=== PATIENT | male | born 1945 | race Caucasian/White ===

== ENCOUNTER 2017-04-29 10:00 | Outpatient (CLI) ==
[2014-04-10 03:24] VITALS: BMI 38.0
== END 2017-04-29 10:01 | disposition short-term general hospital (02) ==
LOC: AMBL 10:00
PROVIDERS: ATTEND Emergency Medicine
DX: M54.9 Dorsalgia, unspecified (principal); R53.1 Weakness; M48.00 Spinal stenosis, site unspecified

== ENCOUNTER 2023-07-25 11:49 | Inpatient (IN) ==
[2023-07-25 12:26] LABS: RSV MOLECULAR NEGATIVE BY NAAT (NEGATIVE)
[2023-07-25 12:27] LABS: SARS COV-2 RNA RAPID NAAT POSITIVE (NEGATIVE)
[2023-07-25 12:30] LABS: MOLECULAR FLU A NEGATIVE BY NAAT (NEGATIVE); MOLECULAR FLU B NEGATIVE BY NAAT (NEGATIVE)
[2023-07-25 13:50] LABS: BASOPHILS % (AUTO) 0.1 % (0.0-3.0); EOSINOPHILS # (AUTO) 0.1 K/ul (0.0-0.7); EOSINOPHILS % (AUTO) 1.1 % (0.0-7.0); HEMATOCRIT 46.1 % (42.0-52.0); HEMOGLOBIN 15.5 g/dl (14.0-18.0); IMMATURE GRANULOCYTE % (AUTO) 0.5 % (0.0-5.0); LYMPHOCYTES # (AUTO) 0.7 K/uL (0.60-3.4); LYMPHOCYTES % (AUTO) 7.7 (10.0-50.0); MEAN CORPUSCULAR HEMOGLOBIN 30.5 pg (27.0-31.0); MEAN CORPUSCULAR HGB CONC 33.6 (31.8-35.4); MEAN CORPUSCULAR VOLUME 90.7 fl (80.0-94.0); MONOCYTES # (AUTO) 0.9 K/uL (0.4-2.0); NEUTROPHILS # (AUTO) 6.8 K/ul (2.0-6.9); NEUTROPHILS % (AUTO) 80.6 % (42.2-75.2); PLATELET COUNT 159 10^3/uL (140-440); RDW COEFFICIENT OF VARIATION 13.2 % (11.6-14.8); RED BLOOD COUNT 5.08 10^6/ul (4.70-6.10); WHITE BLOOD COUNT 8.48 K/ul (4.2-10.2)
[2023-07-25 14:03] LABS: ALKALINE PHOSPHATASE 56.9 U/L (56-119); ASPARTATE AMINO TRANSFERASE 26.1 U/L (17-59); BLOOD UREA NITROGEN 12.3 mg/dL (9-20); CALCIUM 9.48 mg/dL (8.4-10.2); CARBON DIOXIDE 28.9 mmol/L (22-30.0); CHLORIDE 100.8 mmol/L (98-107); CREATININE 1.15 mg/dL (0.60-1.10); POTASSIUM 4.06 mmol/L (3.5-5.1); SODIUM 134.9 mmol/L (134.5-145); TOTAL PROTEIN 7.74 g/dL (6.3-8.2)
--- NOTE | 2023-07-25 14:03 | ED.PDOC ---
General ED Provider: Dr. KEON STRICKLAND DO Chief Complaint: Respiratory Complaint Stated Complaint: Patient is a 77 yo M here for weakness, cough and discomfort for 3 days Patient arrives afebrile and mildly hypoxic 92% on room air, he does not use home oxygen Patient pleasant to speak with He has dementia and daughters who are POA are at bedside He has not have bacterial pneumonia or covid 19 vaccines He is a non smoker Patient speaking in full senteces on room air spo2 92-94% No falls or injuries No chest pain, no rashes, no dysuria patient amenable to work up Family requesting labs imaging and testing Covid + shortly after arrival Patient ambulated well to bed 1 Time Seen by Provider: 07/25/23 12:20 Information Source: Patient and Family Primary Care Provider: MARIVEL BOOGIE Nursing and Triage Documentation Reviewed and Agree: Yes What is Opioid Naive?: *Opioid Naive implies the patient is not already taking opioids or not chronically receiving opioids on a daily basis. *PRN dosing is not "usually" associated with tolerance. *Patients are at higher risk of over-sedation and aspiration. What is Opioid Tolerant?: *Opioid Tolerance implies less than the expected response to an opioid. *Acquired tolerance is defined by the patient taking 60mg of oral morphine daily (or equianalgesic dose of another opioid) for 1 week or more. *Often associated with chronic pain. *May take more than usual dose to achieve desired pain control. Review of Systems Review Of Systems Constitutional: Reports Chills, Fever and Weakness Eyes: Denies Blindness, Vision change or Drainage Ears, Nose, Mouth, Throat: Denies Ear pain, Ear discharge or Nose pain Respiratory: Reports Cough; Denies Shortness of Breath or Wheezing Cardiac: Denies Chest pain, Palpitations or Syncope GI: Denies Constipated or Diarrhea : Denies Burning, Dysuria or Discharge Musculoskeletal: Reports Muscle pain; Denies Back pain or Neck pain Skin: Denies Bruising or Rash Neurological: Denies Anxiety or Depressed Endocrine: Reports No symptoms Hematologic/Lymphatic: Reports No symptoms All Other Systems: Reviewed and Negative Physical Exam Physical Exam Appearance: Reports Well-appearing, Well-nourished and Obese Ill-appearing: Not Applicable Pain Distress: Not Applicable Eyes: Reports NITISH, EOMI and Conjunctiva clear ENT: Reports Ears normal, Nose normal, Oropharynx normal and Other (Uvula midline) Neck: Supple Respiratory: Reports Airway patent, Breath sounds clear and Rhonchi; Denies Wheezes or Retractions Cardiovascular: Reports Pulses normal and Tachycardia (rate 101) GI/: Reports Soft, Nontender and Other (cenral abdominal obesity, no guarding) Musculoskeletal: Reports Normal strength, ROM intact and No edema Skin: Reports Warm and Dry Neurological: Reports Sensation intact and Motor intact Psychiatric: Reports Affect appropriate and Mood appropriate Interpretation EKG Interpretation EKG Interpretation By: ED Physician Time of EKG #1: 14:16 Interpretation: NSR rate 94 no stemi, qrs qt wnl Course Course 07/25/23 13:44 07/25/23 13:44 Orders, Labs, Meds: Lab Review 07/25/23 07/25/23 07/25/23 12:05 13:44 14:02 WBC 8.48 RBC 5.08 Hgb 15.5 Hct 46.1 MCV 90.7 MCH 30.5 MCHC 33.6 RDW Coeff of Cas 13.2 Plt Count 159 Immature Gran % (Auto) 0.5 Neut % (Auto) 80.6 H Lymph % (Auto) 7.7 L [place] % (Auto) 10.0 Eos % (Auto) 1.1 Baso % (Auto) 0.1 Neut # (Auto) 6.8 Lymph # (Auto) 0.7 [place] # (Auto) 0.9 Eos # (Auto) 0.1 Baso # (Auto) 0.0 Immature Gran # (Auto) 0.0 Puncture Site Rrad Base Excess 2.5 O2 Saturation 92.6 L ABG pH 7.47 H ABG pCO2 36.0 ABG pO2 61.0 L ABG HCO3 26.2 ABG Total CO2 27.3 H Goran Test + Hemoglobin 1.1 Oxyhemoglobin 91.9 L Carboxyhemoglobin 2.6 H Total Hemoglobin 15.4 O2 Delivery Device Ra FiO2 % 21.0 Sodium 134.9 Potassium 4.06 Chloride 100.8 Carbon Dioxide 28.9 Anion Gap 9.26 BUN 12.3 Creatinine 1.15 H Estimated GFR (MDRD) 62.00 BUN/Creatinine Ratio 10.69 Glucose 118.0 H Lactic Acid 1.05 Calcium 9.48 Total Bilirubin 1.30 AST 26.1 ALT 26.0 Alkaline Phosphatase 56.9 Troponin I < 0.012 Total Protein 7.74 Albumin 4.30 Globulin 3.44 Albumin/Globulin Ratio 1.25 Influ A Molecular Assay Negative by naat Influ B Molecular Assay Negative by naat RSV Antigen Negative by naat SARS CoV-2 RNA Rapid CLAU Positive H Orders Category Date Time Status OBSERVATION [PLACE PATIENT OBSERVATION] .TO MEDSURG ADMISSION 07/25/23 15:44 Active (MONITORED BED) ABG DRAW REQUEST Stat CARDIO 07/25/23 12:47 Completed EKG-(ED ONLY) Stat CARDIO 07/25/23 12:47 Completed INCENTIVE SPIROMETRY Routine CARDIO 07/25/23 15:42 Ordered NEBULIZER TREATMENT Routine CARDIO 07/25/23 15:45 Ordered OXYGEN Routine CARDIO 07/25/23 15:43 Ordered ACTIVITY .Early Mobilization for VTE Prevention CARE 07/25/23 15:41 Active CONTINUOUS PULSE OX (NURSING) PULSEOX CARE 07/25/23 15:42 Active INTAKE & OUTPUT Q8HR CARE 07/25/23 15:41 Active NPO REMINDER: IMAGING ONCE CARE 07/25/23 12:47 Active TELEMETRY MONITORING TELE CARE 07/25/23 15:42 Active TELEMETRY MONITORING TELE CARE 07/25/23 15:44 Active VITAL SIGNS Q4HR CARE 07/25/23 15:43 Active REGULAR DIET DIETARY 07/25/23 Dinner Ordered ED APPLY O2 .ONCE EMERGENCY 07/25/23 12:47 Active ED PARKER APPLIED .ONCE EMERGENCY 07/25/23 12:47 Active ABG COOX Stat LAB 07/25/23 14:02 Completed CBC W/ AUTO DIFF DAILY@0600 LAB 07/26/23 06:00 Ordered CBC W/ AUTO DIFF DAILY@0600 LAB 07/27/23 06:00 Ordered CBC W/ AUTO DIFF Stat LAB 07/25/23 13:44 Completed COMPREHENSIVE METABOLIC PANEL DAILY@0600 LAB 07/26/23 06:00 Ordered COMPREHENSIVE METABOLIC PANEL DAILY@0600 LAB 07/27/23 06:00 Ordered COMPREHENSIVE METABOLIC PANEL Stat LAB 07/25/23 13:44 Completed LACTIC ACID Stat LAB 07/25/23 13:44 Completed MOLECULAR FLU A & B [FLU A/B MOLECULAR] Stat LAB 07/25/23 12:05 Completed MOLECULAR GROUP A STREP Stat LAB 07/25/23 12:05 Completed RSV Stat LAB 07/25/23 12:05 Completed SARS COV-2 RNA RAPID CLAU Stat LAB 07/25/23 12:05 Completed TROPONIN I Stat LAB 07/25/23 13:44 Completed Albuterol Sulfate 0.083% Neb [Albuterol 0.083% Neb] Meds 07/25/23 15:41 Active 2.5 mg NEB RTQ4H PRN Dexamethasone Sod Phosphate [Decadron] Meds 07/26/23 09:00 Active 6 mg IV DAILY Ipratropium/Albuterol Neb [Duoneb] Meds 07/25/23 18:00 Active 3 ml NEB RTQ6H Sodium Chloride 0.9% [Sodium Chloride] 1,000 ml Meds 07/25/23 16:00 Ordered IV 100 mls/hr CT CHEST PE PROTOCOL Stat RADS 07/25/23 12:47 Completed Medications Generic Name Dose Route Start Last Admin Trade Name Freq PRN Reason Stop Dose Admin Albuterol Sulfate 2.5 mg 07/25/23 15:41 Albuterol Sulfate 0.083% Vial.Neb NEB RTQ4H PRN Wheezing Albuterol/Ipratropium 3 ml 07/25/23 18:00 Ipratropium/Albuterol Vial.Neb NEB RTQ6H JEROD Dexamethasone Sodium Phosphate 6 mg 07/26/23 09:00 Dexamethasone Sod Phos 10 Mg/Ml Inj IV DAILY JEROD Sodium Chloride 1,000 mls @ 100 mls/hr 07/25/23 16:00 Sodium Chloride IV .Q10H JEROD Vital Signs: Temp Pulse Resp BP Pulse Ox 07/25/23 12:09 100.1 F 102 H 20 132/73 93 L Hospitalist agrees with obs MDM: patient is a 77 yo M here for cough weakness and feer Patient afebrile and mildly hypoxic 92% Hx form POA and chart review by me Exam concerning for viral syndrome 3+ labs and 2 images reviewed by me I consulted hospitalist who agrees with admission for hypoxia and remdesivir treatment WDX: Covid 19, hypoxia acute moderate complexity DDX: I considered sepsis, abscess, shock but these were not found SDOH: patient has PCP and family support All questions answered Patient and family amenable to observation stay Patient and family and I discussed risks benefits alternatives and plan of care Discharge Plan Discharge Patient Disposition: PLACED OBSERVATION Discharge Problem: COVID-19, Hypoxia Did you review [place] [employer] for ALL controlled substances?: Not Applicable ED Provider: KEON STRICKLAND Condition: Fair Physician Progress Note: []
[2023-07-25 14:16] LABS: TROPONIN I < 0.012 ng/ml (0.0000-0.120)
[2023-07-25 14:46] LABS: ABG O2 HGB 91.9 % (95-100); ABG PH 7.47 (7.35-7.45); BEecf 2.5 (-2.0-3.0); COHb 2.6 (0.5-1.5); HCO3 26.2 (21-28); MetHb 1.1 (0-1.5); TCO2 27.3 (19-24); sO2 92.6 % (94-98); tHb 15.4 g/dl (11.7-17.4)
--- NOTE | 2023-07-25 15:28 | CT ---
EXAM: CTA CHEST WITH CONTRAST HISTORY: COVID-19 and hypoxia COMPARISON: None TECHNIQUE: Multi-slice transaxial helical images are acquired through the chest according to an [facility] ogram protocol. 3-D volume images are provided. All CT scans are performed using dose optimization techniques as appropriate to the performed exam and includes at least one of the following: Automate d exposure control, adjustment of the mA and/or kV according to size, and the use of iterative recons truction technique. CONTRAST: Intravenous FINDINGS: The pulmonary ateries are free of intraluminal filling defects. The ascending aorta is ec tatic to 34.1 mm. The heart size is normal. Aortic valve calcifications suggest aortic valve stenos is. Left anterior descending coronary calcifications are noted. No pericardial or pleural effusions . No suspicious lymphadenopathy. The lungs are atelectatic. No acute infiltrates. The dependent l ungs are atelectatic. No suspicious pulmonary nodules or masses. The ventilation is diffusely low relative to the spleen. A simple cyst is noted near the superior po le of the right kidney. An additional small simple cyst is suggested at the superior to interpolar r egion left kidney. There is additional tiny hypodensity at the superior pole of the left kidney that is too small to characterize. The solid organs are otherwise grossly normal in their visualized por tions of the upper abdomen. The gallbladder is surgically absent without biliary dilatation. No suspicious osteolytic or osteoblastic bone lesions. No acute bony abnormalities are evident. IMPRESSION: - No acute cardiopulmonary disease. - No pulmonary emboli. - Ectasia of the ascending aorta 34.1 mm and tending suggestive of aortic valve stenosis. - Left anterior descending coronary artery disease. - Possible diffuse hepatic steatosis. - Simple acquired renal cysts. All CT scans are performed using dose optimization techniques as appropriate to the performed exam an d include at least one of the following: Automated exposure control, adjustment of the mA and/or kV according t o size, and the use of iterative reconstruction technique.
[2023-07-25] MEDS ORDERED: ALBUTEROL 0.083% NEB NEB PRN (15:41)
--- NOTE | 2023-07-25 16:44 | PCM ---
Date of Service Date Seen by Provider: 07/25/23 Time Seen by Provider: 16:30 Admit Day/Time Admission Date: 07/25/23 Reason for Admission Chief Complaint: HYPOXIA Hospital Provider Hospital Provider: HAO CAMPBELL, [facility] Primary Care Physician Primary Care Physician: MARIVEL BOOGIE History of Present Illness History of Present Illness: 77 yo male presented to the ER with headache, chills, and weakness. Patient has pmh of undiagnosed dementia with short term memory loss. Daughter present to provide HPI. Reports symptoms started Wednesday. Has not been eating or drinking well since then. Fever and headache started Wednesday and continued. Denies sob, n/v/d. O2 sat in ER below 94%. Was placed on 2L per ER doctor. On RA on my exam. ABG showed PO2 61%. Admitted to med/surg observation. Case Discussed With Case Discussed With: Patient's case was discussed with the ER Physicians, Dr. Yang. Allergies Allergies Allergy/AdvReac Type Severity Reaction Status Date / Time meperidine HCl [From Demerol] AdvReac Flushing Verified 07/25/23 11:56 Current Medications Home Medications levothyroxine 75 mcg tablet (Synthroid) 75 mcg PO DAILY 04/10/14 [History Confirmed 07/25/23 Last Taken Unknown] simvastatin 20 mg tablet 20 mg PO DAILY 04/10/14 [History Confirmed 07/25/23 Last Taken Unknown] donepezil 10 mg tablet 10 mg PO BEDTIME 11/14/20 [History Confirmed 07/25/23 Last Taken Unknown] lamotrigine 25 mg tablet 50 mg PO DAILY 11/14/20 [History Confirmed 07/25/23 Last Taken Unknown] lisinopril 10 mg-hydrochlorothiazide 12.5 mg tablet 1 tab PO DAILY 11/14/20 [History Confirmed 07/25/23 Last Taken Unknown] meclizine 25 mg tablet 25 mg PO TID PRN Dizziness Or Vertigo 11/14/20 [History Confirmed 07/25/23 Last Taken Unknown] rivaroxaban 20 mg tablet (Xarelto) 20 mg PO DAILY 11/14/20 [History Confirmed 07/25/23 Last Taken Unknown] sertraline 100 mg tablet 100 mg PO DAILY 11/14/20 [History Confirmed 07/25/23 Last Taken Unknown] clotrimazole-betamethasone 1 %-0.05 % topical cream 1 applic topical BID 07/25/23 [History Confirmed 07/25/23 Last Taken Unknown] trazodone 50 mg tablet 50 mg PO BEDTIME 07/25/23 [History Confirmed 07/25/23 Last Taken Unknown] Home Acetaminophen (Acetaminophen 325 Mg Tablet) 650 mg PO Q4H PRN PRN Reason: FEVER/PAIN Albuterol Sulfate (Albuterol Sulfate 0.083% Vial.Neb) 2.5 mg NEB RTQ4H PRN PRN Reason: Wheezing Albuterol/Ipratropium (Ipratropium/Albuterol Vial.Neb) 3 ml NEB RTQ6H JEROD Dexamethasone Sodium Phosphate (Dexamethasone Sod Phos 10 Mg/Ml Inj) 6 mg IV DAILY JEROD Sodium Chloride (Sodium Chloride) 1,000 mls @ 100 mls/hr IV .Q10H JEROD Remdesivir 200 mg/ Sodium (Chloride) 250 mls @ 250 mls/hr IV ONCE ONE Stop: 07/25/23 17:41 Remdesivir 100 mg/ Sodium (Chloride) 100 mls @ 200 mls/hr IV DAILY JEROD Stop: 07/29/23 09:29 Ibuprofen (Ibuprofen 600 Mg Tablet) 600 mg PO Q6H PRN PRN Reason: FEVER/PAIN Opioid Naive vs. Tolerant Does Patient Take Opioids?: No Is Patient Opioid Naive?: Yes What is Opioid Naive?: *Opioid Naive implies the patient is not already taking opioids or not chronically receiving opioids on a daily basis. *PRN dosing is not "usually" associated with tolerance. *Patients are at higher risk of over-sedation and aspiration. Is Patient Opioid Tolerant?: No What is Opioid Tolerant?: *Opioid Tolerance implies less than the expected response to an opioid. *Acquired tolerance is defined by the patient taking 60mg of oral morphine daily (or equianalgesic dose of another opioid) for 1 week or more. *Often associated with chronic pain. *May take more than usual dose to achieve desired pain control. Review of Systems Constitutional: Reports Fever, Chills, Weakness and Loss of appetite Head: Reports Normocephalic Eyes: Reports No symptoms Ears: Reports No symptoms Nose: Reports No symptoms Mouth: Reports No symptoms Throat: Reports Sore Throat Cardiovascular: Reports No symptoms Respiratory: Reports Cough Gastrointestinal: Reports No symptoms Genitourinary: Reports No Symptoms Musculoskeletal: Reports No symptoms Endocrine: Reports No symptoms Hematology: Reports No symptoms Immunology: Reports No symptoms Neurological: Reports No symptoms Psychiatric: Reports No symptoms Physical examination Most Recent Vital Signs: Most Recent Vital Signs Temperature 100.1 F 07/25/23 12:09 Temperature Source Infrared 07/25/23 12:09 Pulse Rate 102 H 07/25/23 12:09 Respiratory Rate 20 07/25/23 12:09 Blood Pressure 132/73 07/25/23 12:09 O2 Sat by Pulse Oximetry 93 L 07/25/23 12:09 Height 5 ft 7 in 07/25/23 12:09 Weight 227 lb 3.2 oz 07/25/23 12:09 Appearance: Positive No Apparent Distress, Alert and Oriented x3 and Ill- Appearing Skin: Positive Warm and Good Turgor HEENT: Positive Normocephalic and PERRLA Neck: Positive Supple and Midline Trachea Chest/Lungs: Positive Symmetrical With Equal Breath Sounds, Clear to Auscultation Bilaterally and Good Air Movement all 4 Lung [place] Heart: Positive RRR and Pulses Normal GI/: Positive Soft, Nontender, Bowel Sounds Normal and No Distention Musculoskeletal: Positive Not Examined Extremities: Positive Intact Peripheral Pulses, Stable Joints Without Laxity and Good ROM in All Joints Neurological: Positive Sensation Intact, Motor intact, Alert, Disorinted and Other (generalized weakness) Labs This Visit Labs This Visit: Labs This Visit 07/25/23 07/25/23 07/25/23 12:05 13:44 14:02 WBC 8.48 RBC 5.08 Hgb 15.5 Hct 46.1 MCV 90.7 MCH 30.5 MCHC 33.6 RDW Coeff of Cas 13.2 Plt Count 159 Immature Gran % (Auto) 0.5 Neut % (Auto) 80.6 H Lymph % (Auto) 7.7 L [place] % (Auto) 10.0 Eos % (Auto) 1.1 Baso % (Auto) 0.1 Neut # (Auto) 6.8 Lymph # (Auto) 0.7 [place] # (Auto) 0.9 Eos # (Auto) 0.1 Baso # (Auto) 0.0 Immature Gran # (Auto) 0.0 Puncture Site Rrad Base Excess 2.5 O2 Saturation 92.6 L ABG pH 7.47 H ABG pCO2 36.0 ABG pO2 61.0 L ABG HCO3 26.2 ABG Total CO2 27.3 H Goran Test + Hemoglobin 1.1 Oxyhemoglobin 91.9 L Carboxyhemoglobin 2.6 H Total Hemoglobin 15.4 O2 Delivery Device Ra FiO2 % 21.0 Sodium 134.9 Potassium 4.06 Chloride 100.8 Carbon Dioxide 28.9 Anion Gap 9.26 BUN 12.3 Creatinine 1.15 H Estimated GFR (MDRD) 62.00 BUN/Creatinine Ratio 10.69 Glucose 118.0 H Lactic Acid 1.05 Calcium 9.48 Total Bilirubin 1.30 AST 26.1 ALT 26.0 Alkaline Phosphatase 56.9 Troponin I < 0.012 Total Protein 7.74 Albumin 4.30 Globulin 3.44 Albumin/Globulin Ratio 1.25 Influ A Molecular Assay Negative by naat Influ B Molecular Assay Negative by naat RSV Antigen Negative by naat SARS CoV-2 RNA Rapid CLAU Positive H Microbiology This Visit 07/25/23 12:05 Throat Group A Strep Molecular Assay - Final Imaging Imaging: EXAM: CTA CHEST WITH CONTRAST FINDINGS: The pulmonary ateries are free of intraluminal filling defects. The ascending aorta is ectatic to 34.1 mm. The heart size is normal. Aortic valve calcifications suggest aortic valve stenosis. Left anterior descending coronary calcifications are noted. No pericardial or pleural effusions. No suspicious lymphadenopathy. The lungs are atelectatic. No acute infiltrates. The dependent lungs are atelectatic. No suspicious pulmonary nodules or masses. The ventilation is diffusely low relative to the spleen. A simple cyst is noted near the superior pole of the right kidney. An additional small simple cyst is suggested at the superior to interpolar region left kidney. There is additional tiny hypodensity at the superior pole of the left kidney that is too small to characterize. The solid organs are otherwise grossly normal in their visualized portions of the upper abdomen. The gallbladder is surgically absent without biliary dilatation. No suspicious osteolytic or osteoblastic bone lesions. No acute bony abnormalities are evident. IMPRESSION: - No acute cardiopulmonary disease. - No pulmonary emboli. - Ectasia of the ascending aorta 34.1 mm and tending suggestive of aortic valve stenosis. - Left anterior descending coronary artery disease. - Possible diffuse hepatic steatosis. - Simple acquired renal cysts. Review Statement Review Statement: I have independently reviewed and interpreted the labs/EKGs/imaging that were ordered by the ER provider. I have reviewed all outside records that are available currently in our EMR including imaging/notes/labs from previous visits. Plan Plan: 1. Acute Hypoxic Respiratory Failure in setting of Covid-19 - wean oxygen as tolerated, steroids nebs 2. Covid-19 - decadron 6 mg IVP, remdesivir per protocol, nebs 3. Dehydration - mild, NS@100mL/hr, avoid nephrotoxins/hypotension 4. Hypertension - chronic, on lisinopril-hctz, will order lisinopril without HCTZ due to dehydration and lack of drinking 5. Hypothyroidism - chronic, continue home medications DVT Prophylaxis: Xarelto Time Spent: Greater than 80 minutes spent with patient, 50% of the time spent with this patient was devoted to counseling and coordination of care. [facility]annin minutes spent discussing advance care planning. Disposition: Admit to: Med/Surg Observation Discussed Plan of Care with Dr. Halle Blair. Medications Medication Orders: Medications Ordered Category Date Time Status Acetaminophen [Tylenol] Meds 07/25/23 16:42 Ordered 650 mg PO Q4H PRN Albuterol Sulfate 0.083% Neb [Albuterol 0.083% Neb] Meds 07/25/23 15:41 Active 2.5 mg NEB RTQ4H PRN Dexamethasone Sod Phosphate [Decadron] Meds 07/26/23 09:00 Active 6 mg IV DAILY Ibuprofen [Motrin] Meds 07/25/23 16:42 Ordered 600 mg PO Q6H PRN Ipratropium/Albuterol Neb [Duoneb] Meds 07/25/23 18:00 Active 3 ml NEB RTQ6H Remdesivir [Veklury] 100 mg Meds 07/26/23 09:00 Ordered 0.9 % Sodium Chloride [Sodium Chloride 100Ml] 100 ml IV DAILY Remdesivir [Veklury] 200 mg Meds 07/25/23 16:42 Ordered 0.9 % Sodium Chloride [Sodium Chloride] 250 ml IV ONCE Sodium Chloride 0.9% [Sodium Chloride] 1,000 ml Meds 07/25/23 16:00 Active IV 100 mls/hr
[2023-07-25] MEDS: TYLENOL PO PRN (17:02)
[2023-07-25] MEDS: SODIUM CHLORIDE 1,000 ML IV SCH (17:02)
[2023-07-25 17:27] VITALS: BMI 34.6
[2023-07-25] MEDS: DUONEB NEB SCH (17:50)
[2023-07-25] MEDS: VEKLURY 200 MG in SODIUM CHLORIDE 250 ML IV ONE (18:28)
[2023-07-25] MEDS: LOTRISONE 45 GM TP SCH (21:10)
[2023-07-25] MEDS: ARICEPT PO SCH (21:10)
[2023-07-25] MEDS: DESYREL PO SCH (21:11)
[2023-07-25] MEDS: MOTRIN PO PRN (21:25)
[2023-07-26 05:35] LABS: BASOPHILS % (AUTO) 0.5 % (0.0-3.0); EOSINOPHILS # (AUTO) 0.1 K/ul (0.0-0.7); EOSINOPHILS % (AUTO) 0.8 % (0.0-7.0); HEMOGLOBIN 13.4 g/dl (14.0-18.0); IMMATURE GRANULOCYTE % (AUTO) 0.3 % (0.0-5.0); LYMPHOCYTES # (AUTO) 1.3 K/uL (0.60-3.4); LYMPHOCYTES % (AUTO) 20.8 (10.0-50.0); MEAN CORPUSCULAR HEMOGLOBIN 30.2 pg (27.0-31.0); MEAN CORPUSCULAR HGB CONC 32.7 (31.8-35.4); MEAN CORPUSCULAR VOLUME 92.6 fl (80.0-94.0); MONOCYTES # (AUTO) 1.1 K/uL (0.4-2.0); MONOCYTES % (AUTO) 16.7 (0-10); NEUTROPHILS # (AUTO) 3.9 K/ul (2.0-6.9); NEUTROPHILS % (AUTO) 60.9 % (42.2-75.2); PLATELET COUNT 138 10^3/uL (140-440); RDW COEFFICIENT OF VARIATION 13.4 % (11.6-14.8); RED BLOOD COUNT 4.43 10^6/ul (4.70-6.10); WHITE BLOOD COUNT 6.35 K/ul (4.2-10.2)
[2023-07-26 05:47] LABS: ALANINE AMINOTRANSFERASE 23.1 U/L (0-50); ALBUMIN 3.62 g/dL (3.5-5.0); ASPARTATE AMINO TRANSFERASE 25.8 U/L (17-59); BILIRUBIN,TOTAL 1.02 mg/dL (0.2-1.3); BLOOD UREA NITROGEN 13.5 mg/dL (9-20); CALCIUM 8.44 mg/dL (8.4-10.2); CARBON DIOXIDE 26.3 mmol/L (22-30.0); CHLORIDE 104.8 mmol/L (98-107); CREATININE 1.04 mg/dL (0.60-1.10); GLUCOSE 103.2 mg/dL (74-106); POTASSIUM 3.91 mmol/L (3.5-5.1); SODIUM 134.4 mmol/L (134.5-145); TOTAL PROTEIN 6.71 g/dL (6.3-8.2)
[2023-07-26 08:14] LABS: PROTHROMBIN TIME 10.4 SEC (9.3-11.0)
[2023-07-26] MEDS: DECADRON IV SCH (08:17)
[2023-07-26] MEDS: SYNTHROID PO SCH (08:29)
[2023-07-26] MEDS: ZESTRIL PO SCH (08:29)
[2023-07-26] MEDS: XARELTO PO SCH (08:29)
[2023-07-26] MEDS: ZOCOR PO SCH (08:31)
--- NOTE | 2023-07-26 10:23 | PCM.PROG ---
Date/Time Seen Date Seen by Provider: 07/26/23 Time Seen by Provider: 08:40 Provider Provider: GABRIEL CHOUDHARY PA-C, [facility] Chief Complaint Chief Complaint: HYPOXIA Subjective Subjective: Patient states he's feeling better. Had breakfast today for first time in few days, had no appetite previously. Had a BM. On 2L. Daughters at bedside. Lives at home with . Objective Appearance: Positive No Apparent Distress and Alert and Oriented x3 Chest/Lungs: Positive Clear to Auscultation Bilaterally; Negative Rales, Rhonci or Wheezes Heart: Positive RRR GI/: Positive Soft, Nontender and Bowel Sounds Normal Neurological: Positive Cranial Nerves Intact, Alert and Other (+generalized weakness ) Vital Signs Vital Signs: Vital Signs: Last 24 Hours 07/25/23 12:09 07/25/23 16:46 07/25/23 16:53 Temperature 100.1 F 100.2 F Temperature Source Infrared Oral Pulse Rate 102 H 97 94 Pulse Rate [Apical] Respiratory Rate 20 20 18 Blood Pressure 132/73 Blood Pressure Mean Blood Pressure Left Arm 137/95 Blood Pressure Location Blood Pressure Position Supine O2 Sat by Pulse Oximetry 93 L 94 L 97 Oxygen Delivery Method Nasal Cannula Oxygen Flow Rate 2 Height 5 ft 7 in 5 ft 7 in Weight 227 lb 3.2 oz 221 lb Telemetry Type Telemetry Monitoring Telemetry Heart Rate Telemetry SPO2 EKG [place] Interval EKG QRS Interval Telemetry Strip [place] Pulse Oximetry Type Pulse Oximetry Monitoring 07/25/23 16:53 07/25/23 17:00 07/25/23 17:12 Temperature Temperature Source Pulse Rate Pulse Rate [Apical] 104 H Respiratory Rate 16 Blood Pressure Blood Pressure Mean Blood Pressure Left Arm Blood Pressure Location Blood Pressure Position O2 Sat by Pulse Oximetry Oxygen Delivery Method Nasal Cannula Nasal Cannula Oxygen Flow Rate 2 Height Weight Telemetry Type Remote Telemetry Telemetry Monitoring Started Telemetry Heart Rate 81 Telemetry SPO2 94 EKG IL Interval 0.18 EKG QRS Interval 0.08 Telemetry Strip Reading SR Pulse Oximetry Type Pulse Oximetry Monitoring 07/25/23 17:36 07/25/23 18:00 07/25/23 19:00 Temperature 100.3 F Temperature Source Temporal Artery Scan Pulse Rate Pulse Rate [Apical] Respiratory Rate Blood Pressure Blood Pressure Mean Blood Pressure Left Arm Blood Pressure Location Blood Pressure Position O2 Sat by Pulse Oximetry Oxygen Delivery Method Nasal Cannula Nasal Cannula Oxygen Flow Rate Height Weight Telemetry Type Remote Telemetry Telemetry Monitoring Continues Telemetry Heart Rate 108 H Telemetry SPO2 93 EKG IL Interval 0.14 EKG QRS Interval 0.06 Telemetry Strip [place] sinus tachycardia Pulse Oximetry Type Pulse Oximetry Monitoring 07/25/23 19:00 07/25/23 19:00 07/25/23 20:00 Temperature Temperature Source Pulse Rate Pulse Rate [Apical] Respiratory Rate Blood Pressure Blood Pressure Mean Blood Pressure Left Arm Blood Pressure Location Blood Pressure Position O2 Sat by Pulse Oximetry 96 Oxygen Delivery Method Nasal Cannula Nasal Cannula Nasal Cannula Oxygen Flow Rate 2 Height Weight Telemetry Type Telemetry Monitoring Telemetry Heart Rate Telemetry SPO2 EKG IL Interval EKG QRS Interval Telemetry Strip [place] Pulse Oximetry Type Bedside Monitor Pulse Oximetry Monitoring Continues 07/25/23 20:00 07/25/23 21:00 07/25/23 22:00 Temperature Temperature Source Pulse Rate Pulse Rate [Apical] 88 Respiratory Rate 19 Blood Pressure Blood Pressure Mean Blood Pressure Left Arm Blood Pressure Location Blood Pressure Position O2 Sat by Pulse Oximetry Oxygen Delivery Method Nasal Cannula Nasal Cannula Nasal Cannula Oxygen Flow Rate 2 Height Weight Telemetry Type Telemetry Monitoring Telemetry Heart Rate Telemetry SPO2 EKG IL Interval EKG QRS Interval Telemetry Strip [place] Pulse Oximetry Type Pulse Oximetry Monitoring 07/25/23 22:00 07/25/23 23:00 07/26/23 00:00 Temperature 98.3 F Temperature Source Oral Pulse Rate 91 Pulse Rate [Apical] Respiratory Rate 19 Blood Pressure 119/62 Blood Pressure Mean 81 Blood Pressure Left Arm Blood Pressure Location Left Arm Blood Pressure Position Supine O2 Sat by Pulse Oximetry 94 L Oxygen Delivery Method Room Air Nasal Cannula Nasal Cannula Oxygen Flow Rate Height Weight Telemetry Type Telemetry Monitoring Telemetry Heart Rate Telemetry SPO2 EKG IL Interval EKG QRS Interval Telemetry Strip [place] Pulse Oximetry Type Pulse Oximetry Monitoring 07/26/23 00:48 07/26/23 00:48 07/26/23 00:48 Temperature Temperature Source Pulse Rate Pulse Rate [Apical] Respiratory Rate Blood Pressure Blood Pressure Mean Blood Pressure Left Arm Blood Pressure Location Blood Pressure Position O2 Sat by Pulse Oximetry 94 L Oxygen Delivery Method Nasal Cannula Nasal Cannula Oxygen Flow Rate 2 Height Weight Telemetry Type Bedside Monitor Telemetry Monitoring Continues Telemetry Heart Rate 81 Telemetry SPO2 94 EKG [place] Interval 0.14 EKG QRS Interval 0.71 H Telemetry Strip Reading SINUS RHYTHM Pulse Oximetry Type Bedside Monitor Pulse Oximetry Monitoring Continues 07/26/23 02:00 07/26/23 02:00 07/26/23 03:00 Temperature 99 F Temperature Source Oral Pulse Rate 81 Pulse Rate [Apical] Respiratory Rate 19 Blood Pressure Blood Pressure Mean Blood Pressure Left Arm Blood Pressure Location Blood Pressure Position O2 Sat by Pulse Oximetry 95 Oxygen Delivery Method Nasal Cannula Nasal Cannula Nasal Cannula Oxygen Flow Rate 2 Height Weight Telemetry Type Telemetry Monitoring Telemetry Heart Rate Telemetry SPO2 EKG IL Interval EKG QRS Interval Telemetry Strip [place] Pulse Oximetry Type Pulse Oximetry Monitoring 07/26/23 04:00 07/26/23 05:00 07/26/23 05:52 Temperature Temperature Source Pulse Rate Pulse Rate [Apical] Respiratory Rate Blood Pressure Blood Pressure Mean Blood Pressure Left Arm Blood Pressure Location Blood Pressure Position O2 Sat by Pulse Oximetry 96 Oxygen Delivery Method Nasal Cannula Nasal Cannula Nasal Cannula Oxygen Flow Rate 2 Height Weight Telemetry Type Telemetry Monitoring Telemetry Heart Rate Telemetry SPO2 EKG IL Interval EKG QRS Interval Telemetry Strip [place] Pulse Oximetry Type Pulse Oximetry Monitoring 07/26/23 05:56 07/26/23 05:56 07/26/23 07:00 Temperature 99.0 F Temperature Source Oral Pulse Rate 74 Pulse Rate [Apical] Respiratory Rate 15 Blood Pressure 136/69 Blood Pressure Mean 91 Blood Pressure Left Arm Blood Pressure Location Left Arm Blood Pressure Position Supine O2 Sat by Pulse Oximetry 99 Oxygen Delivery Method Nasal Cannula Nasal Cannula Nasal Cannula Oxygen Flow Rate 2 Height Weight Telemetry Type Telemetry Monitoring Telemetry Heart Rate Telemetry SPO2 EKG IL Interval EKG QRS Interval Telemetry Strip [place] Pulse Oximetry Type Pulse Oximetry Monitoring 07/26/23 07:00 07/26/23 07:00 07/26/23 07:56 Temperature Temperature Source Pulse Rate Pulse Rate [Apical] Respiratory Rate Blood Pressure Blood Pressure Mean Blood Pressure Left Arm Blood Pressure Location Blood Pressure Position O2 Sat by Pulse Oximetry 96 Oxygen Delivery Method Nasal Cannula Nasal Cannula Oxygen Flow Rate 2 Height Weight Telemetry Type Bedside Monitor Telemetry Monitoring Continues Telemetry Heart Rate 66 Telemetry SPO2 96 EKG IL Interval 0.11 L EKG QRS Interval 0.06 Telemetry Strip [place] abnormal rhythm Pulse Oximetry Type Remote Telemetry Pulse Oximetry Monitoring Continues 07/26/23 08:00 07/26/23 09:00 Temperature Temperature Source Pulse Rate Pulse Rate [Apical] 84 Respiratory Rate 14 Blood Pressure Blood Pressure Mean Blood Pressure Left Arm Blood Pressure Location Blood Pressure Position O2 Sat by Pulse Oximetry Oxygen Delivery Method Nasal Cannula Nasal Cannula Oxygen Flow Rate 2 Height Weight Telemetry Type Telemetry Monitoring Telemetry Heart Rate Telemetry SPO2 EKG IL Interval EKG QRS Interval Telemetry Strip [place] Pulse Oximetry Type Pulse Oximetry Monitoring Lab Results Lab Results: Lab Results: Last 24 Hours 07/26/23 07/25/23 07/25/23 05:25 14:02 13:44 WBC 6.35 8.48 RBC 4.43 L 5.08 Hgb 13.4 L 15.5 Hct 41.0 L 46.1 MCV 92.6 90.7 MCH 30.2 30.5 MCHC 32.7 33.6 RDW Coeff of Cas 13.4 13.2 Plt Count 138 L 159 Immature Gran % (Auto) 0.3 0.5 Neut % (Auto) 60.9 80.6 H Lymph % (Auto) 20.8 7.7 L [place] % (Auto) 16.7 H 10.0 Eos % (Auto) 0.8 1.1 Baso % (Auto) 0.5 0.1 Neut # (Auto) 3.9 6.8 Lymph # (Auto) 1.3 0.7 [place] # (Auto) 1.1 0.9 Eos # (Auto) 0.1 0.1 Baso # (Auto) 0.0 0.0 Immature Gran # (Auto) 0.0 0.0 PT 10.4 INR 1.00 Puncture Site Rrad Base Excess 2.5 O2 Saturation 92.6 L ABG pH 7.47 H ABG pCO2 36.0 ABG pO2 61.0 L ABG HCO3 26.2 ABG Total CO2 27.3 H Goran Test + Hemoglobin 1.1 Oxyhemoglobin 91.9 L Carboxyhemoglobin 2.6 H Total Hemoglobin 15.4 O2 Delivery Device Ra FiO2 % 21.0 Sodium 134.4 L 134.9 Potassium 3.91 4.06 Chloride 104.8 100.8 Carbon Dioxide 26.3 28.9 Anion Gap 7.21 9.26 BUN 13.5 12.3 Creatinine 1.04 1.15 H Estimated GFR (MDRD) 69.00 62.00 BUN/Creatinine Ratio 12.98 10.69 Glucose 103.2 118.0 H Lactic Acid 1.05 Calcium 8.44 9.48 Total Bilirubin 1.02 1.30 AST 25.8 26.1 ALT 23.1 26.0 Alkaline Phosphatase 46.0 L 56.9 Troponin I < 0.012 Total Protein 6.71 7.74 Albumin 3.62 4.30 Globulin 3.09 3.44 Albumin/Globulin Ratio 1.17 1.25 Influ A Molecular Assay Influ B Molecular Assay RSV Antigen SARS CoV-2 RNA Rapid CLAU 07/25/23 12:05 WBC RBC Hgb Hct MCV MCH MCHC RDW Coeff of Cas Plt Count Immature Gran % (Auto) Neut % (Auto) Lymph % (Auto) [place] % (Auto) Eos % (Auto) Baso % (Auto) Neut # (Auto) Lymph # (Auto) [place] # (Auto) Eos # (Auto) Baso # (Auto) Immature Gran # (Auto) PT INR Puncture Site Base Excess O2 Saturation ABG pH ABG pCO2 ABG pO2 ABG HCO3 ABG Total CO2 Goran Test Hemoglobin Oxyhemoglobin Carboxyhemoglobin Total Hemoglobin O2 Delivery Device FiO2 % Sodium Potassium Chloride Carbon Dioxide Anion Gap BUN Creatinine Estimated GFR (MDRD) BUN/Creatinine Ratio Glucose Lactic Acid Calcium Total Bilirubin AST ALT Alkaline Phosphatase Troponin I Total Protein Albumin Globulin Albumin/Globulin Ratio Influ A Molecular Assay Negative by naat Influ B Molecular Assay Negative by naat RSV Antigen Negative by naat SARS CoV-2 RNA Rapid CLAU Positive H Additional Comments Additional Comments: I have independently reviewed and interpreted the labs/EKGs/imaging ordered dur ing this hospital stay. I have reviewed outside records that are available in our EMR that pertain to medical stay including imaging/notes/labs from previous visits. Active Medications Active Medications: Medications Generic Name Dose Route Start Last Admin Trade Name Freq PRN Reason Stop Dose Admin Acetaminophen 650 mg 07/25/23 16:42 07/25/23 17:02 Acetaminophen 325 Mg Tablet PO 650 mg Q4H PRN Administration FEVER/PAIN Albuterol Sulfate 2.5 mg 07/25/23 15:41 Albuterol Sulfate 0.083% Vial.Neb NEB RTQ4H PRN Wheezing Albuterol/Ipratropium 3 ml 07/25/23 18:00 07/26/23 05:37 Ipratropium/Albuterol Vial.Neb NEB 3 ml RTQ6H JEROD Administration Dexamethasone Sodium Phosphate 6 mg 07/26/23 09:00 07/26/23 08:17 Dexamethasone Sod Phos 10 Mg/Ml Inj IV 6 mg DAILY JEROD Administration Donepezil HCl 10 mg 07/25/23 21:00 07/25/23 21:10 Donepezil Hcl 10 Mg Tablet PO 10 mg BEDTIME JEROD Administration Sodium Chloride 1,000 mls @ 100 mls/hr 07/25/23 16:00 07/26/23 03:58 Sodium Chloride IV 100 mls/hr .Q10H JEROD Administration Remdesivir 100 mg/ Sodium 100 mls @ 200 mls/hr 07/26/23 12:00 Chloride IV 07/29/23 12:29 1200 JEROD Ibuprofen 600 mg 07/25/23 16:42 07/25/23 21:25 Ibuprofen 600 Mg Tablet PO 600 mg Q6H PRN Administration FEVER/PAIN Levothyroxine Sodium 75 mcg 07/26/23 09:00 07/26/23 08:29 Levothyroxine Sodium 75 Mcg Tablet PO 75 mcg DAILY JEROD Administration Lisinopril 10 mg 07/26/23 09:00 07/26/23 08:29 Lisinopril 10 Mg Tablet PO 10 mg DAILY JEROD Administration Rivaroxaban 20 mg 07/26/23 09:00 07/26/23 08:29 Rivaroxaban 10 Mg Tablet PO 20 mg DAILY JEROD Administration Simvastatin 20 mg 07/26/23 09:00 07/26/23 08:31 Simvastatin 10 Mg Tablet PO 20 mg DAILY JEROD Administration Trazodone HCl 50 mg 07/25/23 21:00 07/25/23 21:11 Trazodone Hcl 50 Mg Tablet PO 50 mg BEDTIME JEROD Administration Plan Plan: 1. Acute Hypoxic Respiratory Failure in setting of Covid-19 - wean oxygen as tolerated, steroids nebs 2. Covid-19 - decadron 6 mg IVP, remdesivir per protocol (day #2), nebs 3. Dehydration - Resolved, stop fluids, avoid nephrotoxins/hypotension 4. Hypertension - chronic, on lisinopril-hctz, will order lisinopril without HCTZ due to dehydration and lack of drinking 5. Hypothyroidism - chronic, continue home medications 6. Hx of DVT - Cont xarelto DVT: Xarelto Dispo: Will require 1-2 more midnights Review Statement Review Statement: I have personally discussed and reviewed the patient's visit/currently labs/imaging/decision making with Dr. Blair, my supervising attending. Greater that 50 minutes spent with patient, 50% of the time spent with this patient was devoted to counseling and coordination of care.
[2023-07-26] MEDS: VEKLURY 100 MG in SODIUM CHLORIDE 100ML 100 ML IV SCH (12:08)
[2023-07-26] MEDS: ZOFRAN 4 MG/2 ML IVP PRN (18:27)
[2023-07-27 06:29] LABS: ALANINE AMINOTRANSFERASE 24.7 U/L (0-50); ALBUMIN 4.06 g/dL (3.5-5.0); ALKALINE PHOSPHATASE 49.8 U/L (56-119); ASPARTATE AMINO TRANSFERASE 28.5 U/L (17-59); BILIRUBIN,TOTAL 0.75 mg/dL (0.2-1.3); BLOOD UREA NITROGEN 18.6 mg/dL (9-20); CALCIUM 8.94 mg/dL (8.4-10.2); CARBON DIOXIDE 28.2 mmol/L (22-30.0); CHLORIDE 104.2 mmol/L (98-107); CREATININE 1.03 mg/dL (0.60-1.10); GLUCOSE 136.4 mg/dL (74-106); POTASSIUM 3.8 mmol/L (3.5-5.1); SODIUM 137.4 mmol/L (134.5-145); TOTAL PROTEIN 7.49 g/dL (6.3-8.2)
[2023-07-27 06:52] LABS: PROTHROMBIN TIME 10.2 SEC (9.3-11.0)
[2023-07-27 07:11] LABS: BASOPHILS % (AUTO) 0.2 % (0.0-3.0); HEMATOCRIT 44.7 % (42.0-52.0); HEMOGLOBIN 14.6 g/dl (14.0-18.0); IMMATURE GRANULOCYTE % (AUTO) 0.2 % (0.0-5.0); LYMPHOCYTES # (AUTO) 1.5 K/uL (0.60-3.4); LYMPHOCYTES % (AUTO) 18.5 (10.0-50.0); MEAN CORPUSCULAR HEMOGLOBIN 30.4 pg (27.0-31.0); MEAN CORPUSCULAR HGB CONC 32.7 (31.8-35.4); MEAN CORPUSCULAR VOLUME 93.1 fl (80.0-94.0); MONOCYTES # (AUTO) 0.8 K/uL (0.4-2.0); MONOCYTES % (AUTO) 9.7 (0-10); NEUTROPHILS # (AUTO) 5.9 K/ul (2.0-6.9); NEUTROPHILS % (AUTO) 71.4 % (42.2-75.2); PLATELET COUNT 168 10^3/uL (140-440); RDW COEFFICIENT OF VARIATION 13.4 % (11.6-14.8); WHITE BLOOD COUNT 8.28 K/ul (4.2-10.2)
[2023-07-27] MEDS: SYNTHROID PO SCH (07:53)
[2023-07-27] MEDS: DECADRON IVP SCH (09:19)
--- NOTE | 2023-07-27 10:59 | PCM.PROG ---
Date/Time Seen Date Seen by Provider: 07/27/23 Time Seen by Provider: 08:30 Provider Provider: [facility] Chief Complaint Chief Complaint: HYPOXIA Subjective Subjective: Patient has been on RA but was placed back on oxygen this morning while napping. Suspect KELLEY. Pt states he just overall doesn't feel well today. Daughter is worried as he is more confused than normal today. Patient's started feeling ill today at home as well and has tested positive for covid, so the daughters are feeling stressed caring for them both currently. Objective Appearance: Positive No Apparent Distress and Alert and Oriented x3 Chest/Lungs: Positive Clear to Auscultation Bilaterally; Negative Rales, Rhonci or Wheezes Heart: Positive RRR GI/: Positive Soft, Nontender and Bowel Sounds Normal Neurological: Positive Cranial Nerves Intact, Alert and Other (+generalized weakness, pleasantly confused, fixated on having covid today and worried about that ) Vital Signs Vital Signs: Vital Signs: Last 24 Hours 07/26/23 11:00 07/26/23 12:17 07/26/23 13:00 Temperature 98.1 F Temperature Source Oral Pulse Rate 78 Pulse Rate [Apical] Respiratory Rate 16 Blood Pressure 96/54 L Blood Pressure Mean 68 Blood Pressure Location Right Arm Blood Pressure Position Supine O2 Sat by Pulse Oximetry Oxygen Delivery Method Nasal Cannula Nasal Cannula Oxygen Flow Rate Height Weight Telemetry Type Remote Telemetry Telemetry Monitoring Continues Telemetry Heart Rate 75 Telemetry SPO2 93 EKG MD Interval 0.14 EKG QRS Interval 0.04 L Telemetry Strip [place] SR Pulse Oximetry Type Pulse Oximetry Monitoring 07/26/23 13:00 07/26/23 13:23 07/26/23 14:00 Temperature 97.5 F L Temperature Source Oral Pulse Rate 95 Pulse Rate [Apical] Respiratory Rate 15 Blood Pressure 105/63 107/67 Blood Pressure Mean 77 80 Blood Pressure Location Right Arm Left Arm Blood Pressure Position Supine Supine O2 Sat by Pulse Oximetry 97 94 L Oxygen Delivery Method Nasal Cannula Nasal Cannula Nasal Cannula Oxygen Flow Rate 1 1 Height Weight Telemetry Type Telemetry Monitoring Telemetry Heart Rate Telemetry SPO2 EKG MD Interval EKG QRS Interval Telemetry Strip [place] Pulse Oximetry Type Bedside Monitor Pulse Oximetry Monitoring Continues 07/26/23 14:00 07/26/23 17:04 07/26/23 18:59 Temperature Temperature Source Pulse Rate Pulse Rate [Apical] Respiratory Rate Blood Pressure Blood Pressure Mean Blood Pressure Location Blood Pressure Position O2 Sat by Pulse Oximetry 96 97 92 L Oxygen Delivery Method Nasal Cannula Nasal Cannula Room Air Oxygen Flow Rate 1 1 Height Weight Telemetry Type Telemetry Monitoring Telemetry Heart Rate Telemetry SPO2 EKG MD Interval EKG QRS Interval Telemetry Strip [place] Pulse Oximetry Type Bedside Monitor Pulse Oximetry Monitoring Continues 07/26/23 19:00 07/26/23 19:22 07/26/23 20:00 Temperature Temperature Source Pulse Rate Pulse Rate [Apical] 116 H Respiratory Rate Blood Pressure Blood Pressure Mean Blood Pressure Location Blood Pressure Position O2 Sat by Pulse Oximetry Oxygen Delivery Method Room Air Room Air Oxygen Flow Rate Height Weight Telemetry Type Bedside Monitor Telemetry Monitoring Continues Telemetry Heart Rate 113 H Telemetry SPO2 91 L EKG MD Interval 0.13 EKG QRS Interval 0.04 L Telemetry Strip [place] ST Pulse Oximetry Type Pulse Oximetry Monitoring 07/26/23 21:57 07/27/23 01:00 07/27/23 05:30 Temperature 98.0 F 97.7 F Temperature Source Oral Temporal Artery Scan Pulse Rate 95 78 Pulse Rate [Apical] Respiratory Rate 18 18 Blood Pressure 99/53 L 137/82 Blood Pressure Mean 68 100 Blood Pressure Location Left Arm Left Arm Blood Pressure Position Supine Supine O2 Sat by Pulse Oximetry 90 L 93 L 94 L Oxygen Delivery Method Nasal Cannula Room Air Room Air Oxygen Flow Rate 1 Height Weight Telemetry Type Telemetry Monitoring Telemetry Heart Rate Telemetry SPO2 EKG MD Interval EKG QRS Interval Telemetry Strip [place] Pulse Oximetry Type Bedside Monitor Pulse Oximetry Monitoring Continues 07/27/23 05:33 07/27/23 07:00 07/27/23 07:00 Temperature Temperature Source Pulse Rate Pulse Rate [Apical] Respiratory Rate Blood Pressure Blood Pressure Mean Blood Pressure Location Blood Pressure Position O2 Sat by Pulse Oximetry 96 Oxygen Delivery Method Room Air Room Air Oxygen Flow Rate Height Weight Telemetry Type Telemetry Monitoring Telemetry Heart Rate Telemetry SPO2 EKG MD Interval EKG QRS Interval Telemetry Strip Reading REFUSES Pulse Oximetry Type Bedside Monitor Pulse Oximetry Monitoring Continues 07/27/23 08:00 07/27/23 08:37 07/27/23 09:56 Temperature Temperature Source Pulse Rate Pulse Rate [Apical] 75 Respiratory Rate 18 Blood Pressure Blood Pressure Mean Blood Pressure Location Blood Pressure Position O2 Sat by Pulse Oximetry 97 Oxygen Delivery Method Room Air Room Air Oxygen Flow Rate Height 5 ft 7 in Weight 221 lb Telemetry Type Telemetry Monitoring Telemetry Heart Rate Telemetry SPO2 EKG MD Interval EKG QRS Interval Telemetry Strip [place] Pulse Oximetry Type Pulse Oximetry Monitoring Lab Results Lab Results: Lab Results: Last 24 Hours 07/27/23 07/27/23 06:00 05:43 WBC 8.28 RBC 4.80 Hgb 14.6 Hct 44.7 MCV 93.1 MCH 30.4 MCHC 32.7 RDW Coeff of Cas 13.4 Plt Count 168 Immature Gran % (Auto) 0.2 Neut % (Auto) 71.4 Lymph % (Auto) 18.5 [place] % (Auto) 9.7 Eos % (Auto) 0.0 Baso % (Auto) 0.2 Neut # (Auto) 5.9 Lymph # (Auto) 1.5 [place] # (Auto) 0.8 Eos # (Auto) 0.0 Baso # (Auto) 0.0 Immature Gran # (Auto) 0.0 PT 10.2 INR 0.98 Sodium 137.4 Potassium 3.80 Chloride 104.2 Carbon Dioxide 28.2 Anion Gap 8.80 BUN 18.6 Creatinine 1.03 Estimated GFR (MDRD) 70.00 BUN/Creatinine Ratio 18.05 Glucose 136.4 H Calcium 8.94 Total Bilirubin 0.75 AST 28.5 ALT 24.7 Alkaline Phosphatase 49.8 L Total Protein 7.49 Albumin 4.06 Globulin 3.43 Albumin/Globulin Ratio 1.18 Additional Comments Additional Comments: I have independently reviewed and interpreted the labs/EKGs/imaging ordered during this hospital stay. I have reviewed outside records that are available in our EMR that pertain to medical stay including imaging/notes/labs from previous visits. Active Medications Active Medications: Medications Generic Name Dose Route Start Last Admin Trade Name Freq PRN Reason Stop Dose Admin Acetaminophen 650 mg 07/25/23 16:42 07/25/23 17:02 Acetaminophen 325 Mg Tablet PO 650 mg Q4H PRN Administration FEVER/PAIN Albuterol Sulfate 2.5 mg 07/25/23 15:41 Albuterol Sulfate 0.083% Vial.Brittnee SAMAYOA RTQ4H PRN Wheezing Albuterol/Ipratropium 3 ml 07/25/23 18:00 07/27/23 05:42 Ipratropium/Albuterol Vial.Neb NEB Not Given RTQ6H JEROD Dexamethasone Sodium Phosphate 6 mg 07/27/23 09:00 07/27/23 09:19 Dexamethasone Sod Phos 10 Mg/Ml Inj IVP 6 mg DAILY JEROD Administration Donepezil HCl 10 mg 07/25/23 21:00 07/26/23 20:08 Donepezil Hcl 10 Mg Tablet PO 10 mg BEDTIME JEROD Administration Remdesivir 100 mg/ Sodium 100 mls @ 200 mls/hr 07/26/23 12:00 07/26/23 12:08 Chloride IV 07/29/23 12:29 200 mls/hr 1200 JEROD Administration Ibuprofen 600 mg 07/25/23 16:42 07/25/23 21:25 Ibuprofen 600 Mg Tablet PO 600 mg Q6H PRN Administration FEVER/PAIN Levothyroxine Sodium 75 mcg 07/27/23 07:30 07/27/23 07:53 Levothyroxine Sodium 75 Mcg Tablet PO 75 mcg QDAC2 JEROD Administration Lisinopril 10 mg 07/26/23 09:00 07/27/23 09:09 Lisinopril 10 Mg Tablet PO 10 mg DAILY JEROD Administration Ondansetron HCl 4 mg 07/26/23 18:18 07/26/23 18:27 Ondansetron Hcl/Pf 4 Mg/2 Ml Sdv IVP 4 mg Q6H PRN Administration Nausea / Vomiting Rivaroxaban 20 mg 07/26/23 09:00 07/27/23 09:09 Rivaroxaban 10 Mg Tablet PO 20 mg DAILY JEROD Administration Simvastatin 20 mg 07/26/23 09:00 07/27/23 09:08 Simvastatin 10 Mg Tablet PO 20 mg DAILY JEROD Administration Trazodone HCl 50 mg 07/25/23 21:00 07/26/23 20:08 Trazodone Hcl 50 Mg Tablet PO 50 mg BEDTIME JEROD Administration Plan Plan: 1. Acute Hypoxic Respiratory Failure in setting of Covid-19 - wean oxygen as tolerated, steroids nebs 2. Covid-19 - decadron 6 mg IVP, remdesivir per protocol (day #3), nebs 3. Dehydration - Resolved, stop fluids, avoid nephrotoxins/hypotension 4. Hypertension - chronic, on lisinopril-hctz, will order lisinopril without HCTZ due to dehydration and lack of drinking 5. Hypothyroidism - chronic, continue home medications 6. Hx of DVT - Cont xarelto DVT: Xarelto Dispo: Will require 1-2 more midnights, possible dc tomorrow Review Statement Review Statement: I have personally discussed and reviewed the patient's visit/currently labs/imaging/decision making with Dr. Blair, my supervising attending. Greater that 50 minutes spent with patient, 50% of the time spent with this pa tient was devoted to counseling and coordination of care.
[2023-07-27] MEDS ORDERED: ZYPREXA IM PRN (17:47)
[2023-07-28] MEDS: ZYPREXA IM PRN (00:40)
[2023-07-28 05:37] LABS: BASOPHILS % (AUTO) 0.2 % (0.0-3.0); EOSINOPHILS % (AUTO) 0.1 % (0.0-7.0); HEMATOCRIT 40.9 % (42.0-52.0); HEMOGLOBIN 13.6 g/dl (14.0-18.0); IMMATURE GRANULOCYTE % (AUTO) 0.3 % (0.0-5.0); LYMPHOCYTES % (AUTO) 21.2 (10.0-50.0); MEAN CORPUSCULAR HEMOGLOBIN 30.4 pg (27.0-31.0); MEAN CORPUSCULAR HGB CONC 33.3 (31.8-35.4); MEAN CORPUSCULAR VOLUME 91.3 fl (80.0-94.0); MONOCYTES # (AUTO) 0.5 K/uL (0.4-2.0); MONOCYTES % (AUTO) 5.1 (0-10); NEUTROPHILS # (AUTO) 6.9 K/ul (2.0-6.9); NEUTROPHILS % (AUTO) 73.1 % (42.2-75.2); PLATELET COUNT 166 10^3/uL (140-440); RDW COEFFICIENT OF VARIATION 13.5 % (11.6-14.8); RED BLOOD COUNT 4.48 10^6/ul (4.70-6.10); WHITE BLOOD COUNT 9.38 K/ul (4.2-10.2)
[2023-07-28 05:52] LABS: PROTHROMBIN TIME 10.4 SEC (9.3-11.0)
[2023-07-28 05:56] LABS: ALANINE AMINOTRANSFERASE 23.1 U/L (0-50); ALBUMIN 3.66 g/dL (3.5-5.0); BILIRUBIN,TOTAL 0.75 mg/dL (0.2-1.3); CALCIUM 8.59 mg/dL (8.4-10.2); CARBON DIOXIDE 27.7 mmol/L (22-30.0); CHLORIDE 107.3 mmol/L (98-107); CREATININE 0.87 mg/dL (0.60-1.10); GLUCOSE 121.8 mg/dL (74-106); POTASSIUM 3.87 mmol/L (3.5-5.1); SODIUM 138.1 mmol/L (134.5-145); TOTAL PROTEIN 6.8 g/dL (6.3-8.2)
[2023-07-28 06:05] VITALS: BP 96/52; PULSE 60; TEMP 97.4
[2023-07-28] MEDS: VEKLURY 100 MG in SODIUM CHLORIDE 100ML 100 ML IV SCH (09:17)
[2023-07-28 10:37] VITALS: RESP 18
--- NOTE | 2023-07-28 10:46 | DCSUM ---
Admission Date Admission Date: 07/25/23 Discharge Date Discharge Date: 07/28/23 Admission Diagnosis Admission Diagnosis: 1. Acute Hypoxic Respiratory Failure in setting of Covid-19 2. Covid-19 3. Dehydration Discharge Diagnosis Discharge Diagnosis: 1. Acute Hypoxic Respiratory Failure in setting of Covid-19 - resolved 2. Covid-19 3. Dehydration - Resolved 4. Hypertension - chronic 5. Hypothyroidism - chronic 6. Hx of DVT - Cont [facility] Provider Hospital Provider: GABRIEL CHOUDHARY PA-C, [facility] Primary Care Physician Primary Care Physician: MARIVEL BOOGIE Summary of History and Physical Summary of History and Physical: 77 yo male presented to the ER with headache, chills, and weakness. Patient has pmh of undiagnosed dementia with short term memory loss. Daughter present to provide HPI. Reports symptoms started Wednesday. Has not been eating or drinking well since then. Fever and headache started Wednesday and continued. Denies sob, n/v/d. O2 sat in ER below 94%. Was placed on 2L per ER doctor. On RA on my exam. ABG showed PO2 61%. Hospital Course Subjective: Patient was treated with dexamethasone and remdesivir, had 4 total doses. Was weaned to RA but was usually placed back on 1-2 L at night due to saturations in the upper 80s. Suspect sleep apnea. Pt often very confused at night, required IM zyprexa once. Discussed he would likely do better mentation garcia once back in his normal environment. Discussed considering outpatient sleep study if patient will tolerate. Also recommend outpatient echo due to suggestion of AV stenosis on CTA. Overall patient did well. Has supportive daughters who are considering assisted living situation or alternative for their parents in the future. Discussed home health and daughters decided against it. List given for assisted livings, [facility], private homemaker services. Discharged on remainder of decadron to complete 10 days. Appearance: Pleasant, No Apparent Distress and Alert HEENT: MMM CVS: No Murmur Abdomen: Soft, Non-Tender and No Distention Respiratory: No Accessory Muscle Use Extremities: No Edema Additional Findings: Pleasantly confused Vital Signs: Most Recent Vital Signs Temperature 97.4 F L 07/28/23 06:00 Temperature Source Oral 07/28/23 06:00 Temperature Source Infrared 07/25/23 12:09 Pulse Rate 60 07/28/23 06:00 Respiratory Rate 18 07/28/23 08:00 Blood Pressure 96/52 L 07/28/23 06:00 Blood Pressure Mean 66 07/28/23 06:00 Blood Pressure Left Arm 137/95 07/25/23 16:53 Blood Pressure Location Left Arm 07/27/23 14:00 Blood Pressure Position Supine 07/28/23 06:00 O2 Sat by Pulse Oximetry 94 L 07/28/23 10:26 Oxygen Delivery Method Nasal Cannula 07/28/23 10:26 Oxygen Flow Rate 1 07/28/23 10:26 Height 5 ft 7 in 07/27/23 08:37 Weight 221 lb 07/27/23 08:37 Telemetry Type Bedside Monitor 07/28/23 07:00 Telemetry Monitoring Continues 07/28/23 07:00 Telemetry Heart Rate 55 L 07/28/23 07:00 Telemetry SPO2 94 07/28/23 07:00 EKG AZ Interval 0.11 L 07/28/23 07:00 EKG QRS Interval 0.12 H 07/28/23 07:00 Telemetry Strip Reading SR WITH BBB 07/28/23 07:00 Pulse Oximetry Type Bedside Monitor 07/28/23 07:00 Pulse Oximetry Monitoring Continues 07/28/23 07:00 Imaging: EXAM: CTA CHEST WITH CONTRAST HISTORY: COVID-19 and hypoxia COMPARISON: None TECHNIQUE: Multi-slice transaxial helical images are acquired through the chest according to an angiogram protocol. 3-D volume images are provided. All CT scans are performed using dose optimization techniques as appropriate to the performed exam and includes at least one of the following: Automated exposure control, adjustment of the mA and/or kV according to size, and the use of iterative reconstruction technique. CONTRAST: Intravenous FINDINGS: The pulmonary ateries are free of intraluminal filling defects. The ascending aorta is ectatic to 34.1 mm. The heart size is normal. Aortic valve calcifications suggest aortic valve stenosis. Left anterior descending coronary calcifications are noted. No pericardial or pleural effusions. No suspicious lymphadenopathy. The lungs are atelectatic. No acute infiltrates. The dependent lungs are atelectatic. No suspicious pulmonary nodules or masses. The ventilation is diffusely low relative to the spleen. A simple cyst is noted near the superior pole of the right kidney. An additional small simple cyst is suggested at the superior to interpolar region left kidney. There is additional tiny hypodensity at the superior pole of the left kidney that is too small to characterize. The solid organs are otherwise grossly normal in their visualized portions of the upper abdomen. The gallbladder is surgically absent without biliary dilatation. No suspicious osteolytic or osteoblastic bone lesions. No acute bony abnormalities are evident. IMPRESSION: - No acute cardiopulmonary disease. - No pulmonary emboli. - Ectasia of the ascending aorta 34.1 mm and tending suggestive of aortic valve stenosis. - Left anterior descending coronary artery disease. - Possible diffuse hepatic steatosis. - Simple acquired renal cysts. Lab Results Last 24 Hours: 07/28/23 05:29 WBC 9.38 RBC 4.48 L Hgb 13.6 L Hct 40.9 L MCV 91.3 MCH 30.4 MCHC 33.3 RDW Coeff of Cas 13.5 Plt Count 166 Immature Gran % (Auto) 0.3 Neut % (Auto) 73.1 Lymph % (Auto) 21.2 Hardin % (Auto) 5.1 Eos % (Auto) 0.1 Baso % (Auto) 0.2 Neut # (Auto) 6.9 Lymph # (Auto) 2.0 Hardin # (Auto) 0.5 Eos # (Auto) 0.0 Baso # (Auto) 0.0 Immature Gran # (Auto) 0.0 PT 10.4 INR 1.00 Sodium 138.1 Potassium 3.87 Chloride 107.3 H Carbon Dioxide 27.7 Anion Gap 6.97 BUN 22.0 H Creatinine 0.87 Estimated GFR (MDRD) 85.00 BUN/Creatinine Ratio 25.28 Glucose 121.8 H Calcium 8.59 Total Bilirubin 0.75 AST 28.0 ALT 23.1 Alkaline Phosphatase 48.0 L Total Protein 6.80 Albumin 3.66 Globulin 3.14 Albumin/Globulin Ratio 1.16 Discharge Instructions Discharge Planning: Discharge Planning > [address] Errol Blair. Discharge Medications: Medications at Discharge (Home Meds & RX) levothyroxine 75 mcg tablet (Synthroid) 75 mcg PO DAILY 04/10/14 simvastatin 20 mg tablet 20 mg PO DAILY 04/10/14 donepezil 10 mg tablet 10 mg PO BEDTIME 11/14/20 lamotrigine 25 mg tablet 50 mg PO DAILY 11/14/20 lisinopril 10 mg-hydrochlorothiazide 12.5 mg tablet 1 tab PO DAILY 07/22/21 meclizine 25 mg tablet 25 mg PO TID PRN Dizziness Or Vertigo 11/14/20 rivaroxaban 20 mg tablet (Xarelto) 20 mg PO DAILY 11/14/20 sertraline 100 mg tablet 100 mg PO DAILY 11/14/20 clotrimazole-betamethasone 1 %-0.05 % topical cream 1 applic topical BID 07/25/23 trazodone 50 mg tablet 50 mg PO BEDTIME 07/25/23 Discharge Plan Discharge Discharge Orders: Discharge Patient (ONCE); Ordered 07/28/23 Ordered By: GABRIEL CHOUDHARY Activity Restrictions/Additional Instructions: DISCHARGE TO HOME DIET: HEART HEALTHY ACTIVITY: TOLERATED DX: [facility] RECOMMEND OUTPATIENT SLEEP STUDY/ECHO PHARMACY: [facility] Patient Disposition: HOME WITH FAMILY CARE Prescriptions: New dexamethasone 6 mg tablet 6 mg PO DAILY Qty: 6 0RF Rx Instructions: START 07/29/23 Continued levothyroxine [Synthroid] 75 MCG tablet 75 mcg PO DAILY simvastatin 20 MG tablet 20 mg PO DAILY clotrimazole-betamethasone 1-0.05 % cream 1 applic topical BID trazodone 50 mg tablet 50 mg PO BEDTIME donepezil 10 mg Tablet 10 mg PO BEDTIME meclizine 25 mg Tablet 25 mg PO TID PRN (Reason: Dizziness Or Vertigo) lisinopril-hydrochlorothiazide 10-12.5 mg Tablet 1 tab PO DAILY Xarelto 20 mg Tablet 20 mg PO DAILY Discontinued sertraline 100 mg Tablet 100 mg PO DAILY lamotrigine 25 mg Tablet 50 mg PO DAILY Did you review [place] 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
== END 2023-07-28 12:01 | disposition home or self-care (01) | DRG 177 ==
LOC: SCU 11:49 → ED 11:49 → SCU 16:52
PROVIDERS: ADMIT Hospitalist; ATTEND Physician Assistant
DX: I10 Essential (primary) hypertension; F03.90 Unspecified dementia, unspecified severity, without behavioral disturbance, psychotic disturbance, mood disturbance, and anxiety; Z79.01 Long term (current) use of anticoagulants; J96.01 Acute respiratory failure with hypoxia; Z51.81 Encounter for therapeutic drug level monitoring; E03.9 Hypothyroidism, unspecified; U07.1 COVID-19; Z86.718 Personal history of other venous thrombosis and embolism; E86.0 Dehydration